=== PATIENT | male | born 1930 | race Caucasian/White ===

== ENCOUNTER 2017-08-26 19:03 | Emergency (ER) | payer MEDICARE ==
--- NOTE | 2017-08-26 19:26 | ED Physician Documentation ---
General Adult - HISTORIAN Historian: patient, paramedics - HPI Stated Complaint: hypoglycemia Chief Complaint: General Adult Additional Information: Found by Zachary NOLEN in his car on the side of the road, grouchy. FSG 51 per EMS. Given D10 by EMS and FSG 239 in ER. Says this is the third time he has had blood sugar this low. Forgets to eat as he doesn't feel hungry. Took 40 units Humalog this am. No food since. IDDM. Awake, alert, talkative, pleasant, in ER. No other modifying factors or associated signs. - ROS CONST: no problems - PAST HX Past History: AMI, other (IDDM) Surgeries/Procedures: cardiac stent, other (pacemaker, toe amputations) Allergies/Adverse Reactions: Allergies Allergy/AdvReac Type Severity Reaction Status Date / Time cephalexin [From Keflex] Allergy Verified 08/26/17 19:17 Penicillins Allergy Verified 08/26/17 19:17 Sulfa (Sulfonamide Allergy Verified 08/26/17 19:17 Antibiotics) - SOCIAL HX Smoking History: non-smoker - FAMILY HX Family History: No - REVIEWED ASSESSMENTS Nursing Assessment Reviewed: Yes Vitals Reviewed: Yes Progress - Progress Progress: 2024, Has eaten, FSG 147. ED Results Lab/Radiology - Orders Orders: ED Orders Category Date Time Status Place IV Lock 1T Care 08/26/17 19:18 Ordered CBC/PLATELET/DIFF Routine Lab 08/26/17 Ordered CMP Routine Lab 08/26/17 Ordered UA [URINALYSIS] Routine Lab 08/26/17 Ordered General Adult Physical Exam - PHYSICAL EXAM GENERAL APPEARANCE: no distress EENT: eye inspection normal, ENT inspection normal (nearly edentulous), no nystagmus NECK: normal inspection, supple RESPIRATORY: no resp distress, breath sounds normal CVS: reg rate & rhythm, heart sounds normal ABDOMEN: soft, normal bowel sounds SKIN: warm/dry, normal color, other (skin intact on feet, toes absent right foot. superficial healing abrasions nicolás lower legs. skin intact back) EXTREMITIES: non-tender, no evidence of injury NEURO: CN's nml as tested, motor nml, sensation nml, cognition normal Discharge Clincal Impression: Hypoglycemia Referrals: Anselmo York MD [Primary Care Provider] - 2 Days Condition: Good Disposition: HOME, SELF-CARE Decision to Admit: NO Decision Time: 20:25
[2017-08-26 19:57] LABS: BASOPHILS % 0.3 (0.0-1.5); EOSINOPHILS % 1.4 % (0.0-6.8); MEAN CORPUSCULAR HEMOGLOBIN 32.4 pg (28.0-34.0); MEAN CORPUSCULAR VOLUME 96.6 fl (80.0-100.0); MONOCYTES % 4.7 % (0.0-11.0); NEUTROPHILS # 7.7 # k/uL (1.4-7.7)
[2017-08-26 20:04] LABS: eGFR (Non-African) > 60
[2017-08-26 20:42] VITALS: BP 118/66
[2017-08-27 08:25] LABS: APPEARANCE,URINE CLEAR (CLEAR); COLOR,URINE YELLOW (YELLOW); OCCULT BLOOD,URINE NEGATIVE (NEGATIVE); PH URINE 5.5 (5.0 - 8.0); UROBILINOGEN URINE 0.2 Eu (0.2-1.0)
== END 2017-08-26 20:40 | disposition home or self-care (01) ==
LOC: ED 19:03
DX: E16.2 Hypoglycemia, unspecified (principal)
CPT/HCPCS: 80053; 81002; 85025; 99283